=== PATIENT | male | born 1950 | race Caucasian/White ===

== ENCOUNTER 2017-04-27 22:59 | Emergency (ER) | payer BC, MEDICARE ==
[2017-04-27] MEDS ORDERED: MORPHINE SULFATE 10 MG/ML INJ IV ONE (23:07)
[2017-04-27] MEDS ORDERED: CYCLOBENZAPRINE HCL 10 MG TABLET PO ONE (23:08)
[2017-04-27] MEDS ORDERED: ONDANSETRON HCL INJ/PF 4 MG/2 ML SDV IV ONE (23:08)
--- NOTE | 2017-04-27 23:25 | ER Document Report ---
ED General - General Chief Complaint: Back Pain Stated Complaint: FALL/BACK PAIN Time Seen by Provider: 04/27/17 23:04 Mode of Arrival: Stretcher Information source: Patient, Relative - - HPI Notes: 66-year-old male with a history of htn, medical history anemia, GERD, diabetes, bladder cancer presented today via EMS on stretcher for sudden onset mid and lower back pain after falling down 3 bricks steps approximately 1 hour ago. Denies any head trauma or change in level consciousness. Has not had any medications since he fell. Pain is 9 out of 10, throbbing achy. Denies any issues with bowel or urine function, denies any symptoms of cauda equina syndrome, saddle anesthesia. Denies history of herniated disc, neoplasms, trauma with fractures, peripheral radiculopathies. denies n/t down legs or arms. No [id number] medication has been tried. Worse when bending forward , better when laying down. Pain is progressive. Pain worse with movement, better when laying still. Denies prior history of back pain. Denies any chest pain, shortness of breath, nausea, vomiting, diarrhea, abdominal pain, lightheadedness, blurred vision, double vision, loss of vision, testicular and rectal pain. Witnessed fall. only take 81mg of ASA, has not taken any today. Past Medical History - General Information source: Patient, Friend, Emergency Med Personnel - Social History Smoking Status: Never Smoker Family History: CAD, DM, Hyperlipidemia, Malignancy - bladder cancer Review of Systems - Review of Systems Constitutional: No symptoms reported EENT: No symptoms reported Cardiovascular: No symptoms reported Respiratory: No symptoms reported Gastrointestinal: No symptoms reported Genitourinary: No symptoms reported Male Genitourinary: No symptoms reported Musculoskeletal: See HPI Skin: No symptoms reported Hematologic/Lymphatic: No symptoms reported Neurological/Psychological: No symptoms reported Physical Exam - Vital signs Vitals: Temp Pulse Resp BP Pulse Ox 98.8 F 84 18 148/84 H 100 04/27/17 23:23 04/27/17 23:23 04/27/17 23:23 04/27/17 23:23 04/27/17 23:23 - Notes Notes: PHYSICAL EXAMINATION: GENERAL: Well-appearing, well-nourished and in no acute distress. HEAD: Atraumatic, normocephalic. EYES: Pupils equal round and reactive to light, extraocular movements intact, sclera anicteric, conjunctiva are normal. ENT: Nares patent, oropharynx clear without exudates. Moist mucous membranes. NECK: Normal range of motion, supple without lymphadenopathy LUNGS: Breath sounds clear to auscultation bilaterally and equal. No wheezes rales or rhonchi. HEART: Regular rate and rhythm without murmurs ABDOMEN: Soft, nontender, nondistended abdomen. No guarding, no rebound. No masses appreciated. Musculoskeletal: straight leg test positive bilaterally. Unable to attempt flexion of bilateral knees due to pain. DTR +2 in BLE equally. Normal motor and sensory function in BLE equally. Distal pulses + 2 BLE equally. Noted paraspinal tenderness bilatearlly from thoaracic to lumbar spinal. Noted T8-L4 spinal tenderness. Femoral pulses + 2 bilaterally and equally. Distal pulses + 2 in bilateral lower extremities. Noted abrasion on back. no scars, lacerations, ecchymosis of any recent trauma. NEUROLOGICAL: Cranial nerves grossly intact. Normal speech, normal gait. Normal sensory, motor exams PSYCH: Normal mood, normal affect. SKIN: Warm, Dry, normal turgor, no rashes or lesions noted. Course - Re-evaluation Re-evalutation: 04/28/17 01:00 0024-pain diminished and pt is comfortable. consulted with Dr. Barajas, hospitalist regarding lumbar and thoracic findings of multiple fractures. Advised me to contact orthopedic brace maker on-call, Dr. Eh Naik. Consulted Dr. Naik at [address] lumbar and thoracic findings of multiple fractures, advised that patient will have to be transferred as there is no spinal specialist community organization worker at [place]. 0045- [facility] trauma services called, spoke with Dr. Mervat Bowden, attending physician, regarding patient's clinical findings and CT findings. Will accept patient to their services. Patient will be transferred via EMS when first available transfer is available. 04/28/17 01:42 disposition given to to GAUTAM Parham and patient assessed at bedside. - Vital Signs Vital signs: Temp Pulse Resp BP Pulse Ox 98.8 F 84 18 148/84 H 100 04/27/17 23:23 04/27/17 23:23 04/27/17 23:23 04/27/17 23:23 04/27/17 23:23 - Laboratory Result Diagrams: 04/28/17 01:15 04/28/17 01:15 Laboratory results interpreted by me: 04/28/17 01:15 WBC 12.3 H Seg Neutrophils % 89.4 H Lymphocytes % 6.2 L Absolute Neutrophils 11.0 H Discharge - Discharge Referrals: JUSTICE JIMENEZ MD [Primary Care Provider] - Follow up as needed
--- NOTE | 2017-04-28 00:07 | RADIOLOGY REPORT (SQ) ---
EXAM DESCRIPTION: CT LUMBAR SPINE WITHOUT CLINICAL HISTORY: 66 years Male, s/p fall down steps, + pain COMPARISON: None. TECHNIQUE: No contrast. Coronal and sagittal reformat. This exam was performed according to our departmental dose-optimization program, which includes automated exposure control, adjustment of the mA and/or kV according to patient size and/or use of iterative reconstruction technique. FINDINGS: Nondisplaced fractures of the left L1 and L2 transverse processes cervical no evidence of healing. Mild L1 anterior vertebral compression deformity, moderate vacuum disc desiccation and bulge between the L3 and S1 levels, 0.4 cm degenerative L3 and L4 retrolisthesis, minimal L1 anterior vertebral wedging, mild/moderate L4-L5 spinal canal stenosis to a moderate wide central disc protrusion/osteophyte complex. Atherosclerosis. IMPRESSION: Nondisplaced fractures of the left L1 and L2 transverse processes. Minimal L1 anterior vertebral compression deformity of indeterminate age.
--- NOTE | 2017-04-28 00:15 | RADIOLOGY REPORT (SQ) ---
EXAM DESCRIPTION: CT THORACIC SPINE WITHOUT CLINICAL HISTORY: 66 years Male, s/p fall down steps, + pain COMPARISON: None. TECHNIQUE: No contrast. Coronal and sagittal reformat. This exam was performed according to our departmental dose-optimization program, which includes automated exposure control, adjustment of the mA and/or kV according to patient size and/or use of iterative reconstruction technique. FINDINGS: Acute 1.8 cm corner fracture at the anterior L1 superior endplate with mild, 0.9 cm anterior splaying at the T12-L1 disc. CT of the thoracic spine reported separately. Acute fractures of the left posterior 12th rib, left L1 transverse process, left L2 transverse process. No significant spinal canal or foraminal compromise. No evidence of instability. Moderate diffuse idiopathic skeletal hyperostosis. Inferior neck, soft tissues of the back, retroperitoneum, appear otherwise grossly intact. Abnormal CT of the lumbar spine reported separately. IMPRESSION: Acute fractures of the anterior L1 endplate, left 12th rib, and left L1 and L2 transverse processes. No spinal canal compromise. No evidence of instability.
[2017-04-28] MEDS ORDERED: MORPHINE SULFATE 10 MG/ML INJ IV PRN (01:07)
[2017-04-28 01:31] LABS: ABSOLUTE LYMPHOCYTES (AUTO) 0.8 10^3/uL (0.5-4.7); ABSOLUTE MONOCYTES (AUTO) 0.5 10^3/uL (0.1-1.4); BASOPHILS % (AUTO) 0.3 % (0-2); EOSINOPHILS % (AUTO) 0.3 % (0-6); HEMATOCRIT 43.1 % (37.9-51.0); HEMOGLOBIN 14.4 g/dL (13.5-17.0); LYMPHOCYTES % (AUTO) 6.2 % (13-45); MEAN CORPUSCULAR HEMOGLOBIN 28.4 pg (27.0-33.4); MEAN CORPUSCULAR HGB CONC 33.5 g/dL (32.0-36.0); MEAN CORPUSCULAR VOLUME 85 fl (80-97); MONOCYTES % (AUTO) 3.8 % (3-13); PLATELET COUNT 212 10^3/uL (150-450); RED BLOOD COUNT 5.07 10^6/uL (4.35-5.55); RED CELL DISTRIBUTION WIDTH 13.8 % (11.5-14.0); SEGMENTED NEUTROPHILS % (AUTO) 89.4 % (42-78); TOTAL CELLS COUNTED % (AUTO) 100 %; WHITE BLOOD COUNT 12.3 10^3/uL (4.0-10.5)
[2017-04-28 01:45] LABS: ALANINE AMINOTRANSFERASE 52 U/L (21-72); ALBUMIN 4.3 g/dL (3.5-5.0); ALKALINE PHOSPHATASE 59 U/L (38-126); ANION GAP 16 (5-19); ASPARTATE AMINO TRANSFERASE 33 U/L (17-59); BILIRUBIN,DIRECT 0.3 mg/dL (0.0-0.4); BILIRUBIN,TOTAL 0.5 mg/dL (0.2-1.3); BLOOD UREA NITROGEN 25 mg/dL (7-20); CALCIUM 10.1 mg/dL (8.4-10.2); CARBON DIOXIDE 23 mmol/L (22-30); CHLORIDE 101 mmol/L (98-107); GLUCOSE 193 mg/dL (75-110); POTASSIUM 4.2 mmol/L (3.6-5.0); SODIUM 139.9 mmol/L (137-145); TOTAL PROTEIN 6.6 g/dL (6.3-8.2)
--- NOTE | 2017-04-28 02:59 | RADIOLOGY REPORT (SQ) ---
EXAM DESCRIPTION: CT ABD/PELVIS WITH IV ONLY CLINICAL HISTORY: 66 years Male, + fall, + spinal fx COMPARISON: None. TECHNIQUE: 100 mL Isovue-370 IV contrast. Coronal and sagittal reformat. This exam was performed according to our departmental dose-optimization program, which includes automated exposure control, adjustment of the mA and/or kV according to patient size and/or use of iterative reconstruction technique. Limitation: Arm positioning. FINDINGS: No acute intra-abdominal findings. No free fluid. 1.1 cm likely benign left renal cyst. Minimal bilateral perinephric fat stranding. 17 cm urinary bladder distention. Minimal right scrotal hydrocele. Atherosclerosis involves bilateral renal arteries. Abnormal CT of the lumbar spine reported separately. CT of the chest reported separately. Liver, gallbladder, pancreas, spleen, splenule, adrenals, renal system, gastrointestinal tract, pelvic organs, lymphatics, and vasculature appear otherwise unremarkable. IMPRESSION: 1. No acute intra-abdominal/pelvic findings. 2.Abnormal CT of the lumbar spine reported separately. CT of the chest reported separately.
--- NOTE | 2017-04-28 03:08 | RADIOLOGY REPORT (SQ) ---
EXAM DESCRIPTION: CT CHEST WITH CLINICAL HISTORY: 66 years Male, + fall, + spinal fx COMPARISON: None. TECHNIQUE: 100 mL Isovue-370 contrast. Coronal and sagittal reformat. This exam was performed according to our departmental dose-optimization program, which includes automated exposure control, adjustment of the mA and/or kV according to patient size and/or use of iterative reconstruction technique. FINDINGS: Nondisplaced left posterior 12th rib fracture, superior L1 endplate fracture, T12-L1 focal lordosis, left L1 and L2 transverse process fractures reported separately as part of CT of the thoracolumbar spine. Otherwise, no acute intrathoracic findings. Mediastinum is clear. No pneumothorax. Mild bilateral lower lobar atelectasis or scar. Abnormal CT of the thoracolumbar spine reported separately. CT of the abdomen reported separately. IMPRESSION: 1. Nondisplaced left posterior 12th rib fracture, superior L1 endplate fracture, T12-L1 focal lordosis, left L1 and L2 transverse process fractures reported separately as part of CT of the thoracolumbar spine. CT of the abdomen/pelvis reported separately. 2. No additional intrathoracic findings.
[2017-04-28] MEDS ORDERED: MORPHINE SULFATE 10 MG/ML INJ ONE (07:39)
[2017-04-28] MEDS: MORPHINE SULFATE 10 MG/ML INJ IV PRN ×2 (07:41→11:43)
[2017-04-28 10:20] VITALS: BP 115/69
[2017-04-28] MEDS ORDERED: INSULIN REG, HUMAN 100 UNIT/ML 3 ML VIAL (PYX) SUBCUT ONE (10:56)
== END 2017-04-28 11:47 | disposition short-term general hospital (02) ==
LOC: ER 22:59
DX: S32.019A Unspecified fracture of first lumbar vertebra, initial encounter for closed fracture (principal); S32.029A Unspecified fracture of second lumbar vertebra, initial encounter for closed fracture; S22.32XA Fracture of one rib, left side, initial encounter for closed fracture; M48.50XA Collapsed vertebra, not elsewhere classified, site unspecified, initial encounter for fracture; I10 Essential (primary) hypertension; D64.9 Anemia, unspecified; K21.9 Gastro-esophageal reflux disease without esophagitis; E11.9 Type 2 diabetes mellitus without complications; W10.9XXA Fall (on) (from) unspecified stairs and steps, initial encounter
CPT/HCPCS: 96376; 99285; 96374; 96375; 36415; 82962; 85025; 80053; 71260; 72128; 72131; 74177; J2270 ×2; J1815; J2405